=== PATIENT | male | born 1995 ===

== ENCOUNTER 2019-04-28 11:28 | Emergency (ER) | payer OTHER ==
[~2019-04-28] VITALS: Ht 177.8 cm; Wt 74.4 kg
== END 2019-04-28 14:11 | disposition home or self-care (01) ==
LOC: ER 11:28
DX: B34.9 Viral infection, unspecified (principal); J11.1 Influenza due to unidentified influenza virus with other respiratory manifestations

== ENCOUNTER 2019-10-06 04:36 | Emergency (ER) | payer OTHER ==
[~2019-10-06] VITALS: Ht 177.8 cm; Wt 74.4 kg
[2019-10-06] MEDS ORDERED: URIN D.S. TABL1 EACH PO (08:14)
[2019-10-06] MEDS ORDERED: CIPRO500 MG PO (08:14)
== END 2019-10-06 08:24 | disposition home or self-care (01) ==
LOC: ER 04:36
DX: N39.0 Urinary tract infection, site not specified (principal)

== ENCOUNTER 2020-03-02 18:40 | Emergency (ER) | payer OTHER ==
[~2020-03-02] VITALS: Ht 177.8 cm; Wt 74.4 kg
[~2020-03-02 18:40] MED LIST: CIPRO500 MG PO; URIN D.S. TABL1 EACH PO
== END 2020-03-02 21:44 | disposition home or self-care (01) ==
LOC: ER 18:40
DX: J02.8 Acute pharyngitis due to other specified organisms (principal); Z03.818 Encounter for observation for suspected exposure to other biological agents ruled out

== ENCOUNTER 2021-01-25 12:25 | Emergency (ER) | payer OTHER ==
[~2021-01-25] VITALS: Ht 177.8 cm; Wt 79.8 kg
[2021-01-25] MEDS ORDERED: DICLOFENAC POTA50 MG PO (15:15)
[2021-01-25] MEDS ORDERED: GABAPENTIN300 M2 PO (15:15)
[2021-01-25] MEDS ORDERED: VALACYCLOVIR1000 MG PO (15:15)
== END 2021-01-25 16:04 ==
LOC: ER 12:25
DX: B02.9 Zoster without complications (principal); R23.8 Other skin changes

== ENCOUNTER 2022-05-17 12:23 | Emergency (ER) | payer OTHER ==
[~2022-05-17] VITALS: Ht 177.8 cm; Wt 91.6 kg
[~2022-05-17 12:23] MED LIST changes: +DICLOFENAC POTA50 MG PO; +GABAPENTIN300 M2 PO; +VALACYCLOVIR1000 MG PO
[2022-05-17] MEDS ORDERED: MOLNUPIRAVIR (200 MG PO (14:50)
== END 2022-05-17 14:58 | disposition home or self-care (01) ==
LOC: ER 12:23
DX: U07.1 COVID-19 (principal)